=== PATIENT | male | born 1945 | race Caucasian/White ===

== ENCOUNTER 2017-12-27 10:55 | Inpatient (IN) | payer OTHER, MEDICARE ==
[2017-12-02 11:19] VITALS: BMI 29.0
--- NOTE | 2017-12-02 11:54 | PAT Medication Instructions ---
Service Date Dec 02, 2017. Current Home Medication List Aspirin (Aspirin Ec), 81 MG PO QAM Fish Oil (Ellijay-3), 1 CAP PO QAM Multiple Vitamins W/ Minerals (Centrum Silver Adult 50+), 1 TAB PO QAM Omeprazole (Prilosec), 20 MG PO QAM PRN for Indigestion Verapamil Sust Rel (Calan Sr Ext Rel), 240 MG PO QAM Medication Instructions For Your Scheduled Surgery - Hold the following medications 7 days prior to surgery per surgeon instructions: Fish Oil (Ellijay-3), 1 CAP PO QAM - Hold the following medications the morning of surgery: Multiple Vitamins W/ Minerals (Centrum Silver Adult 50+), 1 TAB PO QAM - Take the following medications the morning of surgery with a sip of water: Verapamil Sust Rel (Calan Sr Ext Rel), 240 MG PO QAM Omeprazole (Prilosec), 20 MG PO QAM PRN for Indigestion (if needed) Aspirin (Aspirin Ec), 81 MG PO QAM If you have any questions please call us at [phone] or [phone] or [phone]
[2017-12-02 12:37] LABS: BASO % 0.3 %; BASO ABS # 0.02 K/uL (0-0.2); EOS % 1.9 %; EOS ABS # 0.15 K/uL (0-0.5); HEMATOCRIT 44.5 % (42-52); HEMOGLOBIN 15.8 g/dL (14.0-18.0); IG# 0.02 K/uL (0.00-0.02); LYMPH % 21.4 %; LYMPH ABS # 1.65 K/uL (1.2-3.4); MEAN CELL VOLUME 88.5 fL (80-100); MEAN CORPUSCULAR HEMOGLOBIN 31.4 pg (25-34); MEAN CORPUSCULAR HGB CONC 35.5 g/dl (32-36); MEAN PLATELET VOLUME 10.5 fL (7.4-10.4); MONO % 10.1 %; MONO ABS # 0.78 K/uL (0.11-0.59); NEUT ABS # 5.08 K/uL (1.4-6.5); PLATELET COUNT 175 K/uL (130-400); RED CELL DISTRIBUTION WIDTH CV 12.3 % (11.5-14.5); RED CELL DISTRIBUTION WIDTH SD 39.4 fL (36.4-46.3)
--- NOTE | 2017-12-02 12:47 | DIAGNOSTIC IMAGING REPORT ---
CHEST 2 VIEWS ROUTINE CLINICAL HISTORY: Preoperative evaluation. COMPARISON STUDY: Chest radiograph June 12, 2016. FINDINGS: Lung volumes are normal. Right shoulder arthroplasty is incidentally noted. No pneumothorax or pleural effusion is noted. Linear left lower lung opacity is suggestive of atelectasis. There is no consolidation. Pulmonary vascularity is normal. Cardiomediastinal silhouette is normal. IMPRESSION: No acute cardiopulmonary findings. Electronically signed by: Sacha Deluna M.D. 12/02/2017 12:46 PM Dictated Date/Time: 12/02/2017 12:45 PM
[2017-12-02 12:50] LABS: PTT PATIENT 25.6 SECONDS (21.0-31.0)
[2017-12-02 14:07] LABS: CALCIUM 10.6 mg/dl (8.5-10.1); CREATININE 1.18 mg/dl (0.60-1.40); POTASSIUM 4.1 mmol/L (3.5-5.1)
--- NOTE | 2017-12-26 15:54 | HISTORY & PHYSICAL EXAMINATION ---
DATE OF ADMISSION: 12/27/2017 CHIEF COMPLAINT: Failed right shoulder resurfacing. HISTORY OF PRESENT ILLNESS: Maik is a pleasant 72-year-old male who has been dealing with chronic increasing right shoulder pain. He saw Dr. Das at [facility] and MRI showed an intact cuff with significant arthritis. He underwent a right shoulder resurfacing about 18 months ago. Unfortunately, since the surgery, he continued to have a lot of pain. He regained full motion, but his pain has become more severe. Followup treatment included an arthrogram, which showed an intact rotator cuff. It showed continued arthritis of the glenoid. After failing extensive conservative treatment, he elected to proceed with a removal of the resurfacing and conversion to a total shoulder arthroplasty. PAST MEDICAL HISTORY: Significant for GERD and hypertension. PAST SURGICAL HISTORY: Include partial prostatectomy, hernia repair and a right shoulder resurfacing by Dr. Das about 18 months ago. ALLERGIES: None. MEDICATIONS: Include omeprazole, verapamil and a daily 81-mg aspirin. FAMILY HISTORY: Significant for diabetes. SOCIAL HISTORY: He is . Never drinks. He remains active. REVIEW OF SYSTEMS: He complains of a continued right shoulder pain. All other pertinent review of systems is negative. PHYSICAL EXAMINATION: GENERAL: He is awake, alert and orient x3. He is in no apparent distress. He is very pleasant. HEENT: Pupils equal, round, and reactive to light. Extraocular movements are intact. Oral mucosa is pink and moist. HEART: Regular rate per radial pulse. LUNGS: Melina symmetrically bilaterally with no audible breath sounds. ABDOMEN: Soft, nontender, and nondistended. MUSCULOSKELETAL: On physical examination of the right shoulder, he has good motion with 150 degrees of forward elevation, 150 degrees of abduction, and 60 degrees of external rotation. His radial, median, ulnar and axillary nerves were all checked and intact. He has no signs of infection. He has close to 5/5 muscle strength throughout. Mildly positive belly press test. IMAGING: Arthrogram of the shoulder showed no evidence of a full thickness rotator cuff tear. X-rays of the shoulder do show a well-placed shoulder resurfacing with advanced arthritis of the glenoid. 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 PLAN: We will proceed with a removal of the resurfacing and conversion to a total shoulder arthroplasty. Postoperatively, he will be placed in an arm sling and kept overnight for postoperative medical management.
[2017-12-27] VITALS (7 sets, daily range): BP systolic 106–151; BP diastolic 61–80; PULSE 67–77; TEMP 36.3–36.8; O2SAT 91–95; Ht 170.2 cm; Wt 86.2 kg
[~2017-12-27] VITALS: Ht 170.2 cm; Wt 86.2 kg
--- NOTE | 2017-12-27 10:17 | History & Physical Bridge Note ---
H&P Re-Evaluation Bridge Note: I have examined the patient, reviewed the History & Physical and in the interval since the performance of the History & Physical I have noted the following changes of clinical significance: No changes noted
[~2017-12-27 10:55] MED LIST: ACETAMINOPHEN 500 MG TAB PO SCH; ASPI81TA28 PO; BACITRACIN 50000 UNIT VIAL ONE; BUPIVACAINE 0.25% 30 ML VIAL ONE; CEFAZOLIN 2000MG IV PUSH 15 ML IV SCH; DEXAMETHASONE SOD INJ 4 MG/ML VIAL ONE; EpINEphrine INJ 1MG/ML AMP 1 MG/ML AMP ONE; FAMOTIDINE 20 MG TAB PO SCH; FENTANYL CITRATE INJ 50 MCG/1 ML 2 ML VIAL ONE; GABAPENTIN 300 MG CAP PO SCH; GLYCOPYRROLATE INJ 0.2 MG/ML VIAL ONE; LACTATED RINGER'S 1000ML 1,000 ML IV SCH; LACTATED RINGER'S 1000ML IV SCH; LIDOCAINE HCL 2% 2 ML VIAL (20MG/ML) ONE; MIDAZOLAM HCL 1 MG/ML 2ML VIAL ONE; MULT-845 PO; NEOSTIGMINE METHYLSULFATE 5 MG/5 ML SYR ONE; OMEG10007 PO; ONDANSETRON INJ 2 MG/ML 2 ML VIAL ONE; ORTHO JOINT ANESTHETIC ONE; PRLSR20 PO; PROPOFOL IV EMULSION 10 MG/ML 20 ML VIAL IV ONE; ROCURONIUM BROMIDE 10 MG/ML 5 ML VIAL IV ONE; ROPIVACAINE 5MG/ML 30 ML 150 MG, BUPIVACAINE 0.5% MPF INJ 30 ML, EpINEphrine HCL INJ 0.... INFIL SCH; VERA240T20 PO
[2017-12-27] MEDS: TRANEXAMIC ACID INJ 1,000 MG x 2 Bags IV SCH ×4 (11:57→16:09)
[2017-12-27] MEDS ORDERED: EpHEDrine SULFATE 50MG/5ML SYR ONE (12:44)
[2017-12-27] MEDS ORDERED: ATROPINE SULFATE 0.1 MG/ML 5ML SYR IV PRN (12:45)
[2017-12-27] MEDS ORDERED: ONDANSETRON INJ 2 MG/ML 2 ML VIAL IV PRN ×2 (12:45→14:15)
[2017-12-27] MEDS ORDERED: PROMETHAZINE HCL INJ 6.25 MG in SODIUM CHLORIDE 0.9% 50ML 50 ML IV PRN (12:45)
[2017-12-27] MEDS ORDERED: FENTANYL CITRATE INJ 50 MCG/1 ML 2 ML VIAL IV PRN (12:45)
[2017-12-27] MEDS ORDERED: EpHEDrine SULFATE INJ 50 MG/ML AMP IV PRN (12:45)
[2017-12-27] MEDS ORDERED: GLYCOPYRROLATE INJ 0.2 MG/ML VIAL ONE (13:45)
[2017-12-27] MEDS ORDERED: ESMOLOL HCL 10 MG/ML 10 ML VIAL ONE (14:07)
--- NOTE | 2017-12-27 14:08 | [facility] Post Operative Brief Note ---
Immediate Operative Summary Operative Date Dec 27, 2017. Pre-Operative Diagnosis failure, right shoulder meño-arthroplasty Post-Operative Diagnosis failure, right shoulder meño-arthroplasty Procedure(s) Performed revision, right total shoulder arthroplasty Surgeon Dr. Pia Garibay Senior Asset Manager Surgeon(s) Huy Fang PA-C Estimated Blood Loss 250ml Findings Consistent with Post-Op Diagnosis Specimens A. right humeral head (permanent) B. explanted hardware, right shoulder Anesthesia Type General Regional Complication(s) none Disposition Disposition: Recovery Room / PACU
[2017-12-27] MEDS ORDERED: MAGNESIUM HYDROXIDE SUSP 30 ML UDC PO PRN (14:15)
[2017-12-27] MEDS ORDERED: BISACODYL 10 MG SUPP PR PRN (14:15)
[2017-12-27] MEDS ORDERED: OXYCODONE HCL IR 5 MG TAB (IMMEDIATE RELEASE) PO PRN (14:15)
[2017-12-27] MEDS ORDERED: SOD PHOSPHATE/SOD BIPHOSPHATE ENEMA 132 ML BTL PR PRN (14:15)
[2017-12-27] MEDS ORDERED: NALOXONE HCL 0.4 MG/1 ML VIAL/CARP IV PRN (14:15)
[2017-12-27] MEDS ORDERED: MoRPHine SULFATE 2 MG/ML CARP IV PRN (14:15)
[2017-12-27] MEDS ORDERED: METOCLOPRAMIDE HCL INJ 5 MG/ML 2 ML VIAL IV PRN (14:15)
[2017-12-27] MEDS ORDERED: IV FLUIDS COMPLETED PRN (14:45)
--- NOTE | 2017-12-27 16:08 | Anesthesiology Progress Note ---
Anesthesia Post Op Note Date & Time Dec 27, 2017 at 15:24 Vital Signs Pain Intensity: 0 Vital Signs Past 12 Hours Date Time Temp Pulse Resp B/P (MAP) Pulse Ox O2 Delivery O2 Flow Rate FiO2 12/27/17 15:20 67 15 112/60 94 Nasal Cannula 4 12/27/17 15:10 36.4 66 18 107/58 92 Nasal Cannula 4 12/27/17 15:00 72 15 107/62 93 Nasal Cannula 4 12/27/17 14:50 75 18 112/67 89 Oxymask 10 12/27/17 14:40 74 15 111/75 91 Oxymask 10 12/27/17 14:31 36.2 78 16 104/74 92 Oxymask 10 12/27/17 11:10 36.8 71 16 151/80 93 Room Air Notes Mental Status: alert / awake / arousable, participated in evaluation Pt Amnestic to Procedure: Yes Nausea / Vomiting: adequately controlled Pain: adequately controlled Airway Patency, RR, SpO2: stable & adequate BP & HR: stable & adequate Hydration State: stable & adequate Anesthetic Complications: no major complications apparent Anesthetic Complications: nerve block working well.
--- NOTE | 2017-12-27 16:25 | Discharge Instructions ---
Discharge Instructions Date of Service Dec 27, 2017. Admission Reason for Admission: Right Shoulder Glenoid Osteoarthritis, Retained [place] Discharge Discharge Diagnosis / Problem: Right Total Shoulder Discharge Goals Goal(s): Decrease discomfort, Improve function Activity Recommendations Activity Limitations: as noted below . Instructions / Follow-Up Instructions / Follow-Up Activity and Therapy Recommendations: * Wear your sling for 3 weeks, unless otherwise instructed. You may remove your sling to shower and to dress, but otherwise, you should be in your sling at all times, including while sleeping * The shoulder replacement is very stable and you can use your hand while in the sling * Physical Therapy should start about 3-5 days from your day of surgery. Therapy will last about 8-12 weeks * You were shown a series of exercises in the hospital. Do these exercises daily including the exercises you were shown in physical therapy. Medications: * Narcotic You will likely be sent home from the hospital with a prescription for the narcotic pain medication that worked best throughout your stay. * Other medications may be prescribed for specific circumstances. If you have any questions, please call the office at . * Resume previous home medications unless otherwise instructed Showering: You may shower 5 days from the day of surgery. Let the soapy shower water run over the lincoln. Do not scrub or soak the incision. Things To Watch For: * Drainage from the incision site that occurs more than one week after your surgery. * Increased redness at the incision site. * Fever above 102 degrees Fahrenheit. * Unusual chest pain or shortness of breath. * Call [facility] at with any of the above problems Follow-Up Visit: Follow-up with Dr. Garibay 2 weeks after your day of surgery. An appointment was probably scheduled when you signed-up for surgery in the office. If you have any questions call Office Instructions: More detailed instructions as well as Frequently Asked Questions were provided in a folder by our office when you signed-up for surgery. Please review these instructions when you get home. If you have any further questions or concerns, please feel free to call the office at [phone] Current Hospital Diet Patient's current hospital diet: Regular Diet Discharge Diet Recommended Diet: Regular Diet Procedures Procedures Performed: revision, right total shoulder arthroplasty, cemented Pending Studies Studies pending at discharge: no Medical Emergencies . Who to Call and When: Medical Emergencies: If at any time you feel your situation is an emergency, please call 911 immediately. . Non-Emergent Contact Non-Emergency issues call your: Surgeon Call Non-Emergent contact if: wound has increased drainage, wound has increased redness . "Provider Documentation" section prepared by Harley Garibay. .
--- NOTE | 2017-12-27 17:10 | OPERATIVE REPORT ---
DATE OF OPERATION: 12/27/2017 PREOPERATIVE DIAGNOSIS: Failed right shoulder hemiarthroplasty. POSTOPERATIVE DIAGNOSIS: Same. PROCEDURE: Removal of right shoulder hemiarthroplasty and conversion to total shoulder arthroplasty. SURGEON: Dr. Harley Garibay. BLISTER PACKING MACHINE TENDER: Priyank Fang PA-C, whose assistance was necessary for retraction and closure. ANESTHESIA: General with a right interscalene nerve block. COMPLICATIONS: None. CONDITION: Stable to PACU. INDICATIONS: Maik is a pleasant 72-year-old male who underwent a right shoulder hemiarthroplasty 18 months ago by another provider. Unfortunately, postoperatively, he continued to have a lot of shoulder pain. X-ray arthrogram showed no rotator cuff tears, but x-rays did show advancing arthritis of the glenoid. After failing conservative treatment, he elected to undergo conversion to a total shoulder arthroplasty. On 12/27/2017, he arrived at [facility] for the above procedure. He was seen in the preoperative holding area and the operative extremity was identified and signed. He was given a preoperative antibiotic and a right interscalene nerve block. He was taken back to the operating room, laid on the table in supine position and put under general anesthesia. He was then put into the beach chair position. The right shoulder was prepped and draped in sterile fashion. Time-out was done. The patient's operative extremity was properly identified. The previous deltopectoral approach was opened up. Dissection was taken down through the deltopectoral interval and the anterior shoulder was exposed. Time was spent releasing all adhesions. The long head of the biceps tendon was tenodesed to the upper border of the pec major and the remainder of the tendon was discarded. The subscapularis was peeled off the lesser tuberosity and the proximal humerus was exposed. The humerus was dislocated out of the joint. An oscillating saw and an osteotome were used to take off the resurfacing. Sequential reaming up to a size 16 reamer was done. Off the final reamer, a proximal humeral resection guide was placed and the proximal humerus was resected at 135 degrees of inclination and 30 degrees of retroversion. This basically just freshened up the cut from where the head was removed. The glenoid was then exposed. Time was spent doing an anterior and inferior capsular and labral release. The glenoid measured to be a size medium. A guide pin was placed in the center of the glenoid and a medium propellar reamer was used. The central boss was drilled followed by the 3 peripheral pegs. The medium glenoid with a Regenerex post was then cemented onto the glenoid. Once the cement had dried, the proximal humerus was once again exposed. Sequential broaching up to a size 16 broach was done. A size 46 x 18 mm eccentric humeral head was trialled. The shoulder was reduced, brought through a full range of motion and felt to be stable. The trials were removed. The final size 16 mini humeral stem was then impacted into place. A 46 x 18 mm eccentric humeral head was then impacted into place. The shoulder was once again reduced. The subscapularis was then tenodesed back to the lesser tuberosity with transosseous FiberWire sutures. Two sutures were placed in the lateral rotator interval. The quality of the subscapularis was rather poor. The surrounding soft tissues were injected with 100 mL of an orthopedic pain control cocktail. The wound was irrigated with 3 liters of normal saline solution with bacitracin. A drain was placed. Skin was closed with 2-0 Vicryl, 3-0 V-Loc sutures and lincoln. He was then placed in a soft dressing and a regular arm sling. He was then extubated, transferred to a litter and taken to the postanesthesia care unit in stable condition and tolerated the procedure well. IMPLANTS USED: I used a Biomet comprehensive total shoulder arthroplasty system with a size 16 mini humeral stem, a 46 x 18 mm humeral head and a medium glenoid with a Regenerex post. The glenoid was cemented in place. If a conversion to a reverse has to be done due to the poor quality of the subscapularis, there was a very good bone stock for placement of a glenoid baseplate. I attest to the content of the Intraoperative Record and any orders documented therein. Any exceptions are noted below. WILVER
[2017-12-27] MEDS: KETOROLAC TROMETHAMINE 15 MG/ML VIAL IV. SCH ×2 (17:48→23:38)
[2017-12-27] MEDS: POTASSIUM CHLORIDE INJ 10 MEQ in SODIUM CHLORIDE 0.9% 1000ML 1,000 ML IV SCH (20:03)
[2017-12-27] MEDS: CEFAZOLIN IV 2,000 MG in SYRINGE 0 ML IV SCH (20:04)
[2017-12-27] MEDS: DOCUSATE SODIUM 100 MG CAP PO SCH (20:49)
[2017-12-27] MEDS ORDERED: SENNA 8.6 MG TAB PO SCH (21:00)
[2017-12-27] MEDS: ACETAMINOPHEN IV 1,000 MG in EMPTY BAG 0 ML IV SCH (22:25)
[2017-12-28 03:40] VITALS: BP 175/74; PULSE 87; TEMP 36.7; O2SAT 91
[2017-12-28] MEDS: POTASSIUM CHLORIDE INJ 10 MEQ in SODIUM CHLORIDE 0.9% 1000ML 1,000 ML IV SCH (03:48)
[2017-12-28] MEDS: CEFAZOLIN IV 2,000 MG in SYRINGE 0 ML IV SCH (03:48)
[2017-12-28 03:52] VITALS: BP 157/92; PULSE 92
[2017-12-28] MEDS: ACETAMINOPHEN IV 1,000 MG in EMPTY BAG 0 ML IV SCH (05:46)
[2017-12-28] MEDS: KETOROLAC TROMETHAMINE 15 MG/ML VIAL IV. SCH (05:46)
[2017-12-28 06:20] LABS: HEMATOCRIT 40.1 % (42-52); HEMOGLOBIN 13.8 g/dL (14.0-18.0); MEAN CELL VOLUME 88.1 fL (80-100); MEAN CORPUSCULAR HEMOGLOBIN 30.3 pg (25-34); MEAN CORPUSCULAR HGB CONC 34.4 g/dl (32-36); MEAN PLATELET VOLUME 10.7 fL (7.4-10.4); PLATELET COUNT 164 K/uL (130-400); RED CELL DISTRIBUTION WIDTH CV 12.1 % (11.5-14.5); RED CELL DISTRIBUTION WIDTH SD 38.5 fL (36.4-46.3); WHITE BLOOD COUNT 13.83 K/uL (4.8-10.8)
[2017-12-28 06:42] LABS: CALCIUM 9.8 mg/dl (8.5-10.1); CREATININE 1.4 mg/dl (0.60-1.40); POTASSIUM 4.4 mmol/L (3.5-5.1)
[2017-12-28] MEDS ORDERED: RXC5 PO (07:22)
[2017-12-28 07:30] VITALS: BP 145/82; PULSE 95; TEMP 36.7; O2SAT 91
--- NOTE | 2017-12-28 07:50 | PROGRESS NOTE ---
DATE: 12/28/2017 CHIEF COMPLAINT: Status post right total shoulder arthroplasty postop day #1. PROGRESS: Maik was seen and examined at bedside today. Overall, he is doing very well. He has very little pain in the right shoulder. He is happy he had the procedure done. He has no complaints. PHYSICAL EXAMINATION: RIGHT SHOULDER: The dressing is clean and dry and the drain is to suction. He is wearing a sling as instructed. His radial, median and ulnar nerves are checked and intact at his wrist. His axillary nerve was not definitively checked yet. LABORATORY DATA: He has an H&H today of 13.8 and 40.1. His glucose is 169. His vital signs are all stable on room air. He is a little hypertensive. He is voiding on his own. IMPRESSION: Status post right total shoulder arthroplasty postop day #1. PLAN: At this point, he is doing as well as expected. He will be seen by physical therapy today to do some hand, wrist and elbow exercises. I do not want any external rotation past 30 degrees. He will be in a sling for 6 weeks. I will discharge him to home later this morning with oral pain medications.
[2017-12-28] MEDS: DOCUSATE SODIUM 100 MG CAP PO SCH (08:47)
[2017-12-28] MEDS ORDERED: ASPIRIN 81 MG ECTAB PO SCH (09:00)
[2017-12-28] MEDS ORDERED: MULTIVITAMIN TAB PO SCH (09:00)
[2017-12-28] MEDS ORDERED: VERAPAMIL HCL 240 MG TABCR PO SCH (09:00)
[2017-12-28 10:59] VITALS: BP 145/82; PULSE 95; TEMP 36.7; O2SAT 91
[2017-12-28 14:57] VITALS: BP 145/82; PULSE 77; O2SAT 96
--- NOTE | 2017-12-31 12:31 | DISCHARGE SUMMARY ---
DISCHARGE DIAGNOSIS: Failed right shoulder hemiarthroplasty. PROCEDURE: Revision to a right total shoulder arthroplasty on 12/27/[address] Harley Garibay. DISCHARGE INSTRUCTIONS: 1. Oxycodone 5-10 mg every 4 hours as needed for pain. 2. Aspirin 81 mg daily. 3. Prilosec as needed. 4. Verapamil 240 mg daily. 5. Right arm sling for 6 weeks. 6. Follow up with Dr. Garibay in 2 weeks. 7. Call the office of Dr. Garibay with any questions or concerns. HOSPITAL COURSE: Maik is a pleasant 72-year-old male who underwent a right shoulder resurfacing 18 months ago by another provider. Unfortunately he continued to have a lot of shoulder pain. Arthrogram and x-rays showed an intact rotator cuff. X-rays also showed advancing arthritis of the glenoid. After failing conservative treatment, he elected to undergo conversion to a total shoulder arthroplasty. On 12/27/2017 he arrived at [facility] and underwent a conversion to a right total shoulder arthroplasty without complication. He had a general anesthetic and a right interscalene nerve block. Postoperatively, he was placed in an arm sling and discharged to general orthopedic floor. His hospital course was uneventful. On postop day #1 he was having very little pain in the shoulder. The nerve block had completely worn off. He was able to participate with therapy, doing hand, wrist and elbow exercises. We are going to limit external rotation for 6 weeks. The nursing staff had changed the dressing, pulled the drain, and he was subsequently discharged to home with the above instructions.
== END 2017-12-28 12:55 | disposition home or self-care (01) | DRG 483 ==
LOC: C.ACU 10:55 → C.3E 14:15 → OBSVTOIN 14:15 → ENRESERV 14:58
PROVIDERS: ADMIT Orthopaedic Surgery; ATTEND Orthopaedic Surgery
PROC: 0RRJ0JZ Replacement of Right Shoulder Joint with Synthetic Substitute, Open Approach (ICD-10-PCS; principal; 2017-12-27 13:35)
PROC: 0RPJ0JZ Removal of Synthetic Substitute from Right Shoulder Joint, Open Approach (ICD-10-PCS; principal; 2017-12-27 13:35)
DX: T84.89XA Other specified complication of internal orthopedic prosthetic devices, implants and grafts, initial encounter (principal); I10 Essential (primary) hypertension; K21.9 Gastro-esophageal reflux disease without esophagitis; Z79.82 Long term (current) use of aspirin; Z79.899 Other long term (current) drug therapy; Z90.79 Acquired absence of other genital organ(s); Y79.2 Prosthetic and other implants, materials and accessory orthopedic devices associated with adverse incidents; Y83.1 Surgical operation with implant of artificial internal device as the cause of abnormal reaction of the patient, or of later complication, without mention of misadventure at the time of the procedure; Z98.890 Other specified postprocedural states

== ENCOUNTER 2023-04-12 05:35 | Observation (INO) ==
[2023-04-12 06:13] LABS: Appearance Urine Cloudy (Clear); Bacteria Urine Automated Negative (Negative); Bilirubin Urine Negative (Negative); Blood Urine 3+ (Negative); Color Urine Yellow; Epithelial Cell Urine Auto >30 /lpf (0-5); Glucose Urine UA Negative (Negative); Ketones Urine Trace (Negative); Leukocyte Esterase Urine 1+ (Negative); Nitrite Urine Negative (Negative); Protein Urine Trace (Negative); Specific Gravity Urine 1.026 (1.000-1.030); Urobilinogen Urine Negative (Negative)
[2023-04-12 06:26] LABS: Calcium Oxalate Crystals Urine Present (None Prsent)
[2023-04-12 06:28] LABS: Basophils # (auto) 0.06 K/uL (0-0.2); Basophils % (auto) 0.6 %; Eosinophils # (auto) 0.19 K/uL (0-0.50); Eosinophils % (auto) 1.8 %; Hematocrit (blood only) 42.2 % (42.0-52.0); Immature Granulocytes # (auto) 0.06 K/uL (0.01-0.20); Immature Granulocytes % (auto) 0.6 %; Lymphocytes # (auto) 1.01 K/uL (1.2-3.4); Lymphocytes % (auto) 9.6 %; Mean Corpuscular Hemoglobin 30.5 pg (25.0-34.0); Mean Corpuscular Hgb Conc 35.5 g/dL (32.0-36.0); Mean Corpuscular Volume 85.8 fL (80.0-100.0); Mean Platelet Volume 10.8 fL (9.4-12.4); Monocytes # (auto) 0.67 K/uL (0.11-0.59); Monocytes % (auto) 6.4 %; Neutrophils # (auto) 8.51 K/uL (1.40-6.50); Platelet Count 162 K/uL (130-400); RDW Coefficient of Variation 11.9 % (11.5-14.5); RDW Standard Deviation 37.2 fL (36.4-46.3); Red Blood Count 4.92 M/uL (4.70-6.10)
--- NOTE | 2023-04-12 06:36 | Emergency Department Note ---
Impression & Plan Hydronephrosis, Abdominal pain, Atypical chest pain, Acute electrocardiogram changes, Renal colic on right side, Hyperglycemia ED Provider Note NAME: PATRICIA MARTINEZ AGE: 78 SEX: M : 1945 ARRIVES VIA: Walk-In INFORMANT: Patient, ED PROVIDER(S): Deshawn Mendez MD CHIEF COMPLAINT: Abdominal pain MEDICAL DECISION MAKING: Patient presents due to concern for abdominal pain. The patient seems to have right lower quadrant pain. IV was established blood work was obtained patient did receive IV morphine IV Zofran and IV fluids. CT abdomen pelvis ordered. Patient's blood work shows a normal white count H&H and platelet count. Kidney function is unremarkable. BSG at 222 but not DKA with normal anion gap and bicarb. Urinalysis does show calcium oxalate crystals and associated breads. Patient CT abdomen pelvis does show a 6 mm obstructing kidney stone. Cholelithiasis without evidence of obvious cholecystitis. Chest x-ray is clear. The patient did have an episode of chest pressure. Unsure as whether or not the patient had some motion artifact but the patient may have slight depressions in the lateral leads V4 through V6. The patient's chest pain was dissipating. Given the patient's obstructing kidney stone chest pressure and possible EKG changes I did speak with the on-call hospitalist service and the patient was admitted to the medicine service by Dr. Salguero. Patient currently has no active chest pain at the time of his admission. Prior /Outside records reviewed: I did review a discharge summary from December 2017. Patient did have a total shoulder arthroplasty completed at that time w/ Dr. Garibay. Differential diagnosis: Appendicitis, testicular torsion, infections, diverticulitis, UTI, obstruction, mesenteric ischemia, aortic pathology, inflammatory bowel disease, renal colic, PUD, pancreatitis, biliary pathology, hernia, volvulus, constipation, as well as other pathologies. Diagnostics, as interpreted by me: ECG: Normal sinus rhythm, rate of 72, normal intervals normal axis no ST elevations. Repeat EKG interpreted by myself Normal sinus rhythm, rate of 82, normal intervals, normal axis, questionable slight depressions in the lateral leads V4 through V6. Repeat EKG interpreted by me Normal sinus rhythm, rate of 79, normal intervals, normal axis, motion artifact noted in the inferior leads. ST depressions noted in the lateral leads. Cardiac monitoring: An order was placed for continuous cardiac monitoring. The monitor shows a rate of 77 with sinus rhythm. Patient was placed on pulse oximetry Medical decision rules: none Imaging studies: See below I informally reviewed the patient's CT which does show right-sided obstructing kidney stone. HPI: Patient presents due to concern for lower right lower abdominal pain. Patient denies any chest pains or shortness of breath. He has had nonproductive cough ongoing and he states that he did have an EGD completed last fall and they had stated that they thought this was related to his Parkinson's. The patient did recently switch medications and does follow with a Dr. Keys in [facility]. Patient had been on Sinemet before and now is on a new medicine. Patient denies any falls or trauma. The patient states that he felt generally unwell with some associated nausea but no vomiting. He did take 2 ibuprofen which improved some of his symptoms. Patient does have a prior history of kidney stones but this does not feel similar. Patient denies any testicular or scrotal pain or swelling. No dysuria or hematuria. No blood in the stool. Patient denies any alcohol or tobacco use. PAST MEDICAL HISTORY: See Below PAST SURGICAL HISTORY: See Below SOCIAL HISTORY: See Below HOME MEDICATIONS: See Below ALLERGIES: See Below VITALS: See Below PHYSICAL EXAMINATION: GENERAL: NAD, non-toxic. EYE EXAM: Normal conjunctiva. PERRL, no anisocoria and EOM's grossly intact w/o pain. NECK: Supple, no nuchal rigidity, no adenopathy, non-tender. No signs of meningismus. FROM of the neck with good chin to chest and neck extension. No stridor. LUNGS: Clear to auscultation. Normal chest wall mechanics. HEART: NSR, no MRG. ABDOMEN: Abdomen soft, right lower quadrant pain, negative obturators, no masses, no rebound or guarding. BACK: No CVA TTP. SKIN: No rashes and no bruising. UPPER EXTREMITIES: Upper extremities are grossly normal. Resting tremor noted of the right upper extremity LOWER EXTREMITIES: Grossly normal, no edema. NEURO EXAM: A&O x3, cranial nerves II-XII grossly intact, normal speech, moves all 4 extremities. Past Med/Surg History Medical History GERD (gastroesophageal reflux disease) H/O: HTN (hypertension) HLD (hyperlipidemia) Parkinson disease Surgical History History of arthroplasty of left shoulder Social History Smoking Status: Never smoker Hx Alcohol Use: No Hx Substance Use: No Feels Safe at Home: Yes Allergies Allergies Allergy/AdvReac Type Severity Reaction Status Date / Time No Known Allergies Allergy Unverified 12/27/17 11:26 Home Meds Home Medications Medication Instructions Recorded Confirmed ASPIRIN (ASPIRIN EC) 81 mg PO QAM ##0 06/12/16 Fish Oil (Browning-3) 1 cap PO QAM #0 caps 06/12/16 MULTIPLE VITAMINS W/ MINERALS 1 tab PO QAM ##0 06/12/16 (CENTRUM SILVER ADULT 50+) OMEPRAZOLE (PRILOSEC) 20 mg PO QAM PRN Indigestion #0 06/12/16 caps Verapamil Sust Rel (Calan Sr Ext 240 mg PO QAM #0 tabs 06/12/16 Rel) Previous Rx's Medication Instructions Recorded Oxycodone HCl 5 - 10 mg PO Q4H PRN Pain #60 tabs 12/28/17 Results & Data (ED) Vital Signs Vital Signs - 24 hr 04/12/23 05:37 04/12/23 06:13 04/12/23 06:15 Temperature 36.9 C Temperature Source Oral Pulse Rate 66 73 Pulse Rate [Right Finger] 69 Pulse Rate from SpO2 Sensor Pulse Rhythm Regular Regular Pulse Rhythm [Right Finger] Regular Pulse Strength Normal Pulse Strength [Right Finger] Normal Respiratory Rate 18 26 H 18 Respiratory Effort / Characteristics Non-Labored Spontaneous Non-Labored Spontaneous Respiratory Depth Normal Normal Respiratory Pattern Regular Regular Blood Pressure 154/90 H Blood Pressure [Left Arm] 165/118 H Blood Pressure Mean 111 Blood Pressure Mean [Left Arm] 133 Blood Pressure Position [Left Arm] Lying Pulse Oximetry 98 94 95 Oxygen Delivery Method Room Air Room Air Room Air Sepsis Recent Fever Within 48 Hours No Sepsis New/Unexplained Change in Mental Status N/A Sepsis Action Taken by Nursing No Action Required 04/12/23 06:18 04/12/23 06:17 04/12/23 06:32 Temperature Temperature Source Pulse Rate 71 74 74 Pulse Rate [Right Finger] Pulse Rate from SpO2 Sensor 73 Pulse Rhythm Pulse Rhythm [Right Finger] Pulse Strength Pulse Strength [Right Finger] Respiratory Rate 17 24 Respiratory Effort / Characteristics Respiratory Depth Respiratory Pattern Blood Pressure 142/80 H Blood Pressure [Left Arm] Blood Pressure Mean 100 Blood Pressure Mean [Left Arm] Blood Pressure Position [Left Arm] Pulse Oximetry 95 96 Oxygen Delivery Method Sepsis Recent Fever Within 48 Hours Sepsis New/Unexplained Change in Mental Status Sepsis Action Taken by Nursing 04/12/23 07:00 04/12/23 07:02 04/12/23 07:02 Temperature Temperature Source Pulse Rate 71 78 Pulse Rate [Right Finger] Pulse Rate from SpO2 Sensor 71 77 Pulse Rhythm Pulse Rhythm [Right Finger] Pulse Strength Pulse Strength [Right Finger] Respiratory Rate 25 H 22 Respiratory Effort / Characteristics Respiratory Depth Respiratory Pattern Blood Pressure 154/105 H Blood Pressure [Left Arm] Blood Pressure Mean 121 Blood Pressure Mean [Left Arm] Blood Pressure Position [Left Arm] Pulse Oximetry 93 95 Oxygen Delivery Method Sepsis Recent Fever Within 48 Hours Sepsis New/Unexplained Change in Mental Status Sepsis Action Taken by Nursing 04/12/23 07:30 04/12/23 07:30 Temperature Temperature Source Pulse Rate 80 Pulse Rate [Right Finger] Pulse Rate from SpO2 Sensor 79 Pulse Rhythm Pulse Rhythm [Right Finger] Pulse Strength Pulse Strength [Right Finger] Respiratory Rate 16 Respiratory Effort / Characteristics Respiratory Depth Respiratory Pattern Blood Pressure 164/104 H Blood Pressure [Left Arm] Blood Pressure Mean 124 Blood Pressure Mean [Left Arm] Blood Pressure Position [Left Arm] Pulse Oximetry 93 Oxygen Delivery Method Sepsis Recent Fever Within 48 Hours Sepsis New/Unexplained Change in Mental Status Sepsis Action Taken by Skilled Nursing Medications Current Medication List: was personally reviewed by me Laboratory Data Attestation: I reviewed the patient's lab results. 04/12/23 06:06 04/12/23 06:06 Lab Results 04/12/23 04/12/23 04/12/23 Range/Units 05:55 06:06 06:06 WBC 10.50 (4.8-10.8) K/ul RBC 4.92 (4.70-6.10) M/uL Hgb 15.0 (14.0-18.0) g/dl Hct 42.2 (42.0-52.0) % MCV 85.8 (80.0-100.0) fL MCH 30.5 (25.0-34.0) pg MCHC 35.5 (32.0-36.0) g/dL RDW Std Deviation 37.2 (36.4-46.3) fL RDW Coeff of Brett 11.9 (11.5-14.5) % Plt Count 162 (130-400) K/uL MPV 10.8 (9.4-12.4) fL Immature Gran % (Auto) 0.6 % Neut % (Auto) 81.0 % Lymph % (Auto) 9.6 % Hughes % (Auto) 6.4 % Eos % (Auto) 1.8 % Baso % (Auto) 0.6 % Neut # (Auto) 8.51 H (1.40-6.50) K/uL Lymph # (Auto) 1.01 L (1.2-3.4) K/uL Hughes # (Auto) 0.67 H (0.11-0.59) K/uL Eos # (Auto) 0.19 (0-0.50) K/uL Baso # (Auto) 0.06 (0-0.2) K/uL Immature Gran # (Auto) 0.06 (0.01-0.20) K/uL Sodium 137 (136-145) mmol/L Potassium 4.1 (3.5-5.1) mmol/L Chloride 105 (98-107) mmol/L Carbon Dioxide 24 (21-32) mmol/L Anion Gap 8 (3-11) BUN 17 (6-23) mg/dl Creatinine 1.30 (0.6-1.4) mg/dl Est Cr Clr Drug Dosing 47.8 ml/min Est GFR ( Amer) 60.6 ml/min Est GFR (Non-Af Amer) 52.3 ml/min BUN/Creatinine Ratio 13.1 (10-20) Glucose 222 H (70-99(Fasting)) mg/dl Calcium 10.1 (8.6-10.3) mg/dl Total Bilirubin 0.6 (0.2-1.0) mg/dl AST 25 (13-39) U/L ALT 33 (7-52) U/L Alkaline Phosphatase 88 (34-104) U/L Troponin I High Sens 7.2 (0-20) pg/ml Total Protein 7.1 (6.0-8.3) gm/dl Albumin 4.4 (3.4-5.0) gm/dl Globulin 2.7 (2.5-4.0) gm/dl Albumin/Globulin Ratio 1.6 (0.9-2) Lipase 28 (11-82) U/L Urine Color Yellow Urine Appearance Cloudy A (Clear) Urine pH 5.0 (4.5-7.5) Ur Specific Jay 1.026 (1.000-1.030) Urine Protein Trace H (Negative) Urine Glucose (UA) Negative (Negative) Urine Ketones Trace H (Negative) Urine Blood 3+ H (Negative) Urine Nitrite Negative (Negative) Urine Bilirubin Negative (Negative) Urine Urobilinogen Negative (Negative) Ur Leukocyte Esterase 1+ H (Negative) Urine WBC (Auto) 5-10 H (0-5) /hpf Urine RBC (Auto) 10-30 H (0-4) /hpf U Hyaline Cast (Auto) 1-5 (0-5) /lpf U Epithel Cells (Auto) >30 H (0-5) /lpf Urine Bacteria (Auto) Negative (Negative) Urine Crystals Not Reportable Calcium Oxalate Crystal Present A (None Prsent) SARS-CoV-2, RNA, NAAT (NEGATIVE) 04/12/23 Range/Units 07:51 WBC (4.8-10.8) K/ul RBC (4.70-6.10) M/uL Hgb (14.0-18.0) g/dl Hct (42.0-52.0) % MCV (80.0-100.0) fL MCH (25.0-34.0) pg MCHC (32.0-36.0) g/dL RDW Std Deviation (36.4-46.3) fL RDW Coeff of Brett (11.5-14.5) % Plt Count (130-400) K/uL MPV (9.4-12.4) fL Immature Gran % (Auto) % Neut % (Auto) % Lymph % (Auto) % Hughes % (Auto) % Eos % (Auto) % Baso % (Auto) % Neut # (Auto) (1.40-6.50) K/uL Lymph # (Auto) (1.2-3.4) K/uL Hughes # (Auto) (0.11-0.59) K/uL Eos # (Auto) (0-0.50) K/uL Baso # (Auto) (0-0.2) K/uL Immature Gran # (Auto) (0.01-0.20) K/uL Sodium (136-145) mmol/L Potassium (3.5-5.1) mmol/L Chloride (98-107) mmol/L Carbon Dioxide (21-32) mmol/L Anion Gap (3-11) BUN (6-23) mg/dl Creatinine (0.6-1.4) mg/dl Est Cr Clr Drug Dosing ml/min Est GFR ( Amer) ml/min Est GFR (Non-Af Amer) ml/min BUN/Creatinine Ratio (10-20) Glucose (70-99(Fasting)) mg/dl Calcium (8.6-10.3) mg/dl Total Bilirubin (0.2-1.0) mg/dl AST (13-39) U/L ALT (7-52) U/L Alkaline Phosphatase (34-104) U/L Troponin I High Sens (0-20) pg/ml Total Protein (6.0-8.3) gm/dl Albumin (3.4-5.0) gm/dl Globulin (2.5-4.0) gm/dl Albumin/Globulin Ratio (0.9-2) Lipase (11-82) U/L Urine Color Urine Appearance (Clear) Urine pH (4.5-7.5) Ur Specific Jay (1.000-1.030) Urine Protein (Negative) Urine Glucose (UA) (Negative) Urine Ketones (Negative) Urine Blood (Negative) Urine Nitrite (Negative) Urine Bilirubin (Negative) Urine Urobilinogen (Negative) Ur Leukocyte Esterase (Negative) Urine WBC (Auto) (0-5) /hpf Urine RBC (Auto) (0-4) /hpf U Hyaline Cast (Auto) (0-5) /lpf U Epithel Cells (Auto) (0-5) /lpf Urine Bacteria (Auto) (Negative) Urine Crystals Calcium Oxalate Crystal (None Prsent) SARS-CoV-2, RNA, NAAT NEGATIVE (NEGATIVE) Administered Medications Discontinued Medications Aspirin (Aspirin Chew 324 Mg) 324 mg PO NOW STA Stop: 04/12/23 07:38 Last Admin: 04/12/23 07:42 Dose: 324 mg Documented By: MES Sodium Chloride (Nss 1000ml) 500 mls @ 999 mls/hr IV .Q31M ONE Stop: 04/12/23 07:23 Last Infusion: 04/12/23 07:29 Dose: 0 mls/hr Documented By: Admin: 04/12/23 06:57 Dose: 999 mls/hr Documented By: LAURA Ioversol (Optiray 320 100ml) 95 ml IV ONCE ONE Stop: 04/12/23 07:14 Last Admin: 04/12/23 07:13 Dose: 95 ml Documented By: JOSÉ ANTONIO Morphine Sulfate (Morphine Sulfate 4 Mg/Ml 1 Ml Carp\Vial) 4 mg IV NOW STA Stop: 04/12/23 06:54 Last Admin: 04/12/23 06:57 Dose: 4 mg Documented By: LAURA Morphine Sulfate (Morphine Sulfate 4 Mg/Ml 1 Ml Carp\Vial) 4 mg IV NOW STA Stop: 04/12/23 08:07 Last Admin: 04/12/23 08:27 Dose: 4 mg Documented By: LAURA Ondansetron HCl (Ondansetron Inj 2 Mg/Ml 2 Ml Vial) 4 mg IV NOW STA Stop: 04/12/23 06:54 Last Admin: 04/12/23 06:57 Dose: 4 mg Documented By: LAURA Imaging Data Radiologist's Impression: Abdomen/Pelvis CT 04/12/23 05:46 CT OF THE ABDOMEN AND PELVIS WITH CONTRAST CLINICAL HISTORY: Right-sided abdominal pain. Nausea COMPARISON STUDY: None. TECHNIQUE: Following IV administration of 95 mL of Optiray, axial images of the abdomen and pelvis were obtained from the lung bases to the proximal femurs. Images were reviewed in the axial, sagittal, and coronal planes. IV contrast was administered without complication. Automated exposure control was utilized for the study. A dose lowering technique was utilized adhering to the principles of ALARA. CT DOSE: 1071.90 mGy.cm FINDINGS: A 6 mm proximal right ureteral calculus results in moderate right hydronephrosis with slightly delayed right nephrogram. There is right perinephric stranding. A few right renal calculi measure up to 6 mm. There are no left-sided urinary calculi. There are small gallstones within the gallbladder. No evidence for acute cholecystitis. Liver, spleen, adrenal glands and pancreas are unremarkable. There is no evidence for a bowel obstruction. Colonic diverticulosis. No evidence for acute diverticulitis. The appendix is normal. There is no lymphadenopathy. No fluid collections are present. Calcifications within the space of Retzius are noted. These are of doubtful significance. IMPRESSION: 1. 6 mm proximal right ureteral calculus which results in moderate right hydronephrosis. 2. Right nephrolithiasis. 3. Cholelithiasis. No evidence for acute cholecystitis. 4. Colonic diverticulosis. No evidence for acute diverticulitis. ACT 112: Negative or not required by law. Electronically signed by: Sacha Deluna M.D. 04/12/2023 7:26 AM Chest X-Ray 04/12/23 06:56 XR chest 1V portable CLINICAL HISTORY: Cough. COMPARISON STUDY: Chest radiograph December 02, 2017. FINDINGS: Right shoulder arthroplasty is partially imaged. Lung volumes are normal. Lungs are clear. There is no pneumothorax or pleural effusion. Cardiac size is normal. Mediastinal contours are normal. There is no evidence for pulmonary edema. IMPRESSION: No acute cardiopulmonary findings. ACT 112: Negative or not required by law. Electronically signed by: Sacha Deluna M.D. 04/12/2023 7:11 AM Discharge Plan Visit Data Chief Complaint: Abdominal Pain Stated Complaint: ABD PAIN ED Provider: Deshawn Mendez Discharge Problem: Hydronephrosis, Abdominal pain, Atypical chest pain, Acute electrocardiogram changes, Renal colic on right side, Hyperglycemia Forms Stand Alone Forms: Enjoi Prescriptions Prescriptions: No Action ASPIRIN (ASPIRIN EC) 81 MG tablet 81 mg PO QAM Qty: 0 Fish Oil (Browning-3) 1 EA capsule 1 cap PO QAM Qty: 0 Patient Comments: PT REPORTS OMEGA 3 AND FISH OIL IS TOGETHER IN ONE BIG HORSE PILL MULTIPLE VITAMINS W/ MINERALS (CENTRUM SILVER ADULT 50+) 1 TAB tablet 1 tab PO QAM Qty: 0 OMEPRAZOLE (PRILOSEC) 20 MG CONTR REL CAP 20 mg PO QAM PRN (Reason: Indigestion) Qty: 0 Patient Comments: pt usues every am and PRN Verapamil Sust Rel (Calan Sr Ext Rel) 240 MG [id number] 240 mg PO QAM Qty: 0 Oxycodone HCl 5 MG tablet 5 - 10 mg PO Q4H PRN (Reason: Pain) Qty: 60 0RF Referrals Referrals: Santosh Rojas [Primary Care Provider] -
[2023-04-12 06:45] LABS: Albumin Globulin Ratio 1.6 (0.9-2); Albumin Level 4.4 gm/dl (3.4-5.0); BUN Creatinine Ratio 13.1 (10-20); Bilirubin,Total 0.6 mg/dl (0.2-1.0); Calcium 10.1 mg/dl (8.6-10.3); Creatinine Clr Calc Pharmacy 47.8 ml/min; Est GFR (African American) 60.6 ml/min; Est GFR (Non-African American) 52.3 ml/min; Globulin 2.7 gm/dl (2.5-4.0); Potassium 4.1 mmol/L (3.5-5.1); Total Protein 7.1 gm/dl (6.0-8.3)
[2023-04-12 06:50] LABS: Troponin I High Sensitivity 7.2 pg/ml (0-20)
[2023-04-12] MEDS ORDERED: ONDANSETRON INJ 2 MG/ML 2 ML VIAL IV STA (06:53)
[2023-04-12] MEDS ORDERED: MoRPHine SULFATE 4 MG/ML 1 ML CARP\\VIAL IV STA ×2 (06:53→08:06)
[2023-04-12] MEDS ORDERED: SODIUM CHLORIDE 0.9% 1000ML 500 ML IV ONE (06:53)
--- NOTE | 2023-04-12 07:12 | XRay Report ---
XR chest 1V portable CLINICAL HISTORY: Cough. COMPARISON STUDY: Chest radiograph December 02, 2017. FINDINGS: Right shoulder arthroplasty is partially imaged. Lung volumes are normal. Lungs are clear. There is no pneumothorax or pleural effusion. Cardiac size is normal. Mediastinal contours are normal . There is no evidence for pulmonary edema. IMPRESSION: No acute cardiopulmonary findings. ACT 112: Negative or not required by law. Electronically signed by: Sacha Deluna M.D. 04/12/2023 7:11 AM
[2023-04-12] MEDS ORDERED: OPTIRAY 320 100ml IV ONE (07:13)
--- NOTE | 2023-04-12 07:28 | CT Scan Report ---
CT OF THE ABDOMEN AND PELVIS WITH CONTRAST CLINICAL HISTORY: Right-sided abdominal pain. Nausea COMPARISON STUDY: None. TECHNIQUE: Following IV administration of 95 mL of Optiray, axial images of the abdomen and pelvis we re obtained from the lung bases to the proximal femurs. Images were reviewed in the axial, sagittal, and coronal planes. IV contrast was administered without complication. Automated exposure control wa s utilized for the study. A dose lowering technique was utilized adhering to the principles of ALARA . CT DOSE: 1071.90 mGy.cm FINDINGS: A 6 mm proximal right ureteral calculus results in moderate right hydronephrosis with sligh tly delayed right nephrogram. There is right perinephric stranding. A few right renal calculi measure up to 6 mm. There are no left-sided urinary calculi. There are small gallstones within the gallbladd er. No evidence for acute cholecystitis. Liver, spleen, adrenal glands and pancreas are unremarkable. There is no evidence for a bowel obstruction. Colonic diverticulosis. No evidence for acute divertic ulitis. The appendix is normal. There is no lymphadenopathy. No fluid collections are present. Calcif ications within the space of Retzius are noted. These are of doubtful significance. IMPRESSION: 1. 6 mm proximal right ureteral calculus which results in moderate right hydronephrosis. 2. Right nephrolithiasis. 3. Cholelithiasis. No evidence for acute cholecystitis. 4. Colonic diverticulosis. No evidence for acute diverticulitis. ACT 112: Negative or not required by law. Electronically signed by: Sacha Deluna M.D. 04/12/2023 7:26 AM
[2023-04-12] MEDS ORDERED: ASPIRIN CHEW 324 MG PO STA (07:37)
[2023-04-12] MEDS ORDERED: SODIUM CHLORIDE 0.9% 1000ML 1,000 ML IV ONE (08:00)
[2023-04-12] MEDS ORDERED: cefTRIAXone SODIUM 2,000 MG in DEXTROSE 5% AD-VAN 50 ML IV ONE (09:24)
[2023-04-12] MEDS ORDERED: VERAPAMIL HCL 240 MG TABCR PO STA (09:34)
[2023-04-12] MEDS ORDERED: cefTRIAXone SODIUM 2,000 MG in DEXTROSE 5% 50 ML IV STA (09:35)
[2023-04-12] MEDS ORDERED: POLYETHYLENE (MIRALAX) 17 GM PACK PO PRN (09:40)
[2023-04-12] MEDS ORDERED: ONDANSETRON INJ 2 MG/ML 2 ML VIAL IV PRN ×2 (09:40→11:22)
[2023-04-12] MEDS ORDERED: ACETAMINOPHEN 325 MG TAB PO PRN (09:40)
--- NOTE | 2023-04-12 09:58 | History & Physical Report ---
Date of Service April 12, 2023 Assessment & Plan (1) Hydronephrosis: (2) Right ureteral stone: (3) Atypical chest pain: (4) HTN (hypertension): (5) HLD (hyperlipidemia): (6) Parkinson disease: Plan This is a 78-year-old male with past medical history of Parkinson's disease, hyp ertension, mood disorder, hyperlipidemia, GERD, history of kidney stones and other medical problems listed below who presents with flank pain that woke him up around 0100 this morning and was found R ureteral stone with hydronephrosis. R ureteral stone with moderate hydronephrosis Right flank pain UA abnormalities R flank pain with associated nausea since 0100 Afebrile, no leukocytosis, abnormal UA concerning for complicated UTI CT abd/pelvis with a 6 mm proximal right ureteral calculus which results in moderate right hydronephrosis Continue IV fluids, gave empiric Rocephin, discussed case with urology service who will evaluate Pain control, strain urine Transient chest pain Developed chest pain following CT scan that has since resolved Multifactorial with anxiety, elevated BP and contrast dye likely contributing Pain resolved after 10 minutes and has not recurred. Repeat EKG and HS trop negative x 2 Will monitor on tele, complete 1 additional trop, gave missed AM verapamil HTN Continue verapamil, lisinopril Parkinson's disease Given missed AM dose of Rytary (not on formulation here but family brought, will send to pharmacy) Mood disorder Stable, continue fluoxetine Hyperglycemia BSG 222 this AM. No known h/o DM II. Added a1c to AM labs DVT Ppx: SCDs for now in case of intervention Code status: FULL PCP: Bob Dispo: Observation PCU Patient seen in collaboration with Dr. Auguste. Please see addendum. I spent a total of 75 minutes coordinating, documenting, and providing care for this patient excluding time spent in the performance of separately billed services. Admission and Anticipated Discharge Date Admission Date: April 12, 2023 History of Present Illness Chief Complaint: Flank pain Primary Care Provider: Santosh Rojas This is a 78-year-old male with past medical history of Parkinson's disease, hypertension, mood disorder, hyperlipidemia, GERD, history of kidney stones and other medical problems listed below who presents with flank pain that woke him up around 0100 this morning. States he felt fatigued and achy yesterday but did not have any pain until it woke him up around 1 this morning. States he developed right-sided sharp flank pain that radiated towards his back and also towards his bladder. Denies any dysuria, hematuria or increased frequency or urgency. Does have history of kidney stones in the past but they have been less painful than this and passed on their own. Endorses some associated nausea but no vomiting. Denies any fever, chills, lightheadedness, shortness of breath, abdominal pain, diarrhea or constipation. Did develop some chest tightness after CAT scan and noted to have elevated blood pressure of 164/118. Did not yet take his morning medications. Patient was given aspirin and rested in bed with resolution of pain within 10 minutes. EKG showed possible ST changes in V4 to V6 but high-sensitivity troponin at that time was negative and repeat EKG 15 minutes later was normal. Repeat troponin 2 hours later also negative and patient has remained chest pain free. Still experiencing 4/10 R flank discomfort. Allergies Allergy/AdvReac Type Severity Reaction Status Date / Time No Known Allergies Allergy Unverified 12/27/17 11:26 Home Medications Medication Instructions Recorded Confirmed Type Fish Oil ([place]-3) 1 cap PO QAM #0 caps 06/12/16 04/12/23 History MULTIPLE VITAMINS W/ MINERALS 1 tab PO QAM ##0 06/12/16 04/12/23 History (CENTRUM SILVER ADULT 50+) aspirin 81 mg tablet,delayed 81 mg PO DAILY 04/12/23 04/12/23 History release carbidopa ER 48.75 mg-levodopa 195 1 cap PO DAILY@08,1400,2000 04/12/23 04/12/23 History mg capsule,extended release (Rytary) cholecalciferol (vitamin D3) 50 50 mcg PO DAILY 04/12/23 04/12/23 History mcg (2,000 unit) tablet (Vitamin D3) fluoxetine 20 mg capsule 20 mg PO DAILY 04/12/23 04/12/23 History lisinopril 2.5 mg tablet 2.5 mg PO DAILY 04/12/23 04/12/23 History omeprazole 20 mg capsule,delayed 20 mg PO DAILY 04/12/23 04/12/23 History release simvastatin 10 mg tablet 10 mg PO PM 04/12/23 04/12/23 History verapamil 240 mg tablet,extended 240 mg PO DAILY 04/12/23 04/12/23 History release Past Med/Surg History Medical History (Updated 04/12/23 @ 10:58 by NICOLETTE Mayes) GERD (gastroesophageal reflux disease) HLD (hyperlipidemia) HTN (hypertension) Parkinson disease Surgical History History of arthroplasty of left shoulder Family History (Updated 04/12/23 @ 10:03 by Jesi Guerrero PA-C) Other Hypertension Social History Smoking Status: Never smoker Hx Alcohol Use: No Hx Substance Use: No Preferred Language: Congolese Communication Ability: Effective Chrome Cleaner Required: No Beliefs That Will Affect Care: None Current Living Situation: Spouse Other Information That Helps Us Care for You: No Feels Safe at Home: Yes Safety Concerns: Feels Safe At This Time Assistive Devices: Glasses Review of Systems Review of Systems: At least ten systems reviewed and negative except as noted in the HPI. Physical Exam Physical Exam: General Appearance: WD/WN, vitals as above, NAD, sitting up in bed, pleasant, conversing easily, parkinsonian tremor Head: normocephalic, atraumatic Eyes: normal inspection, PERRL, conjunctivae normal, anicteric sclerae ENT: external ear and nose normal, oropharynx normal Neck: normal visual inspection, trachea midline, no thyromegaly Respiratory: normal respiratory effort, lungs clear to auscultation, no wheeze, rales, rhonchi. No accessory muscle use Cardiovascular: regular rate, rhythm, no murmur, normal peripheral pulses, no BLE edema. Vessels: no JVD Chest: normal inspection of chest Abdomen/GI: normal bowel sounds, soft, nontender, no hepatosplenomegaly : R flank TTP with radiation to Extremities/Musculoskeletal: no cyanosis or clubbing, extremities motor strength 5/5 Neurologic: PERRL, EOMI, accommodation nl, no face palsy, no dysarthria, CN's II-XI intact bilaterally and moves all extremities Psychiatric: A+Ox3, euthymic affect Skin: no rashes, normal color, warm/dry Results & Data Results & Data Vital Signs (Past 12 Hours) Vital Signs Temp Pulse Pulse Resp BP BP Pulse Ox 04/12/23 07:30 80 16 93 04/12/23 07:30 164/104 H 04/12/23 07:02 154/105 H 04/12/23 07:02 78 22 95 04/12/23 07:00 71 25 H 93 04/12/23 06:32 74 24 142/80 H 96 04/12/23 06:17 74 17 95 04/12/23 06:18 71 04/12/23 06:15 69 18 165/118 H 95 04/12/23 06:13 73 26 H 94 04/12/23 05:37 36.9 C 66 18 154/90 H 98 O2 Del Method 04/12/23 07:30 04/12/23 07:30 04/12/23 07:02 04/12/23 07:02 04/12/23 07:00 04/12/23 06:32 04/12/23 06:17 04/12/23 06:18 04/12/23 06:15 Room Air 04/12/23 06:13 Room Air 04/12/23 05:37 Room Air Laboratory Results Short CBC 04/12/23 Range/Units 06:06 WBC 10.50 (4.8-10.8) K/ul Hgb 15.0 (14.0-18.0) g/dl Hct 42.2 (42.0-52.0) % Plt Count 162 (130-400) K/uL BMP 04/12/23 06:06 Sodium 137 Potassium 4.1 Chloride 105 Carbon Dioxide 24 BUN 17 Creatinine 1.30 Glucose 222 H Calcium 10.1 Liver Function 04/12/23 Range/Units 06:06 Total Bilirubin 0.6 (0.2-1.0) mg/dl AST 25 (13-39) U/L ALT 33 (7-52) U/L Alkaline Phosphatase 88 (34-104) U/L Albumin 4.4 (3.4-5.0) gm/dl Urine 04/12/23 Range/Units 05:55 Urine Color Yellow Urine Appearance Cloudy A (Clear) Urine pH 5.0 (4.5-7.5) Ur Specific [place] 1.026 (1.000-1.030) Urine Protein Trace H (Negative) Urine Glucose (UA) Negative (Negative) Diagnostic Findings Abdomen/Pelvis CT 04/12/23 05:46 CT OF THE ABDOMEN AND PELVIS WITH CONTRAST CLINICAL HISTORY: Right-sided abdominal pain. Nausea COMPARISON STUDY: None. TECHNIQUE: Following IV administration of 95 mL of Optiray, axial images of the abdomen and pelvis were obtained from the lung bases to the proximal femurs. Images were reviewed in the axial, sagittal, and coronal planes. IV contrast was administered without complication. Automated exposure control was utilized for the study. A dose lowering technique was utilized adhering to the principles of ALARA. CT DOSE: 1071.90 mGy.cm FINDINGS: A 6 mm proximal right ureteral calculus results in moderate right hydronephrosis with slightly delayed right nephrogram. There is right perinephri c stranding. A few right renal calculi measure up to 6 mm. There are no left- sided urinary calculi. There are small gallstones within the gallbladder. No evidence for acute cholecystitis. Liver, spleen, adrenal glands and pancreas are unremarkable. There is no evidence for a bowel obstruction. Colonic diverticulosis. No evidence for acute diverticulitis. The appendix is normal. There is no lymphadenopathy. No fluid collections are present. Calcifications within the space of [place] are noted. These are of doubtful significance. IMPRESSION: 1. 6 mm proximal right ureteral calculus which results in moderate right hydronephrosis. 2. Right nephrolithiasis. 3. Cholelithiasis. No evidence for acute cholecystitis. 4. Colonic diverticulosis. No evidence for acute diverticulitis. ACT 112: Negative or not required by law. Electronically signed by: Sacha Deluna M.D. 04/12/2023 7:26 AM Chest X-Ray 04/12/23 06:56 XR chest 1V portable CLINICAL HISTORY: Cough. COMPARISON STUDY: Chest radiograph December 02, 2017. FINDINGS: Right shoulder arthroplasty is partially imaged. Lung volumes are normal. Lungs are clear. There is no pneumothorax or pleural effusion. Cardiac size is normal. Mediastinal contours are normal. There is no evidence for pulmonary edema. IMPRESSION: No acute cardiopulmonary findings. ACT 112: Negative or not required by law. Electronically signed by: Sacha Deluna M.D. 04/12/2023 7:11 AM Code Status & VTE Plan VTE Prophylaxis Plan VTE Prophylaxis will be ordered: Yes Supervising Physician Co-Signing Physician Notes I have seen and examined the patient and have discussed the case with the provider above. I agree with the assessment and plan as stated with the following exceptions. 78 yo M presents with acute right flank pain 2/2 renal colic from a ureteral stone. CT imaging reveals this is 6mm with associated hydronephrosis. The patient otherwise denies symptoms and has underlying parkinsons disease with a c hronic generalized tremor. He does report a few minutes of chest discomfort in the upper central chest area which went away spontaneously. This occurred during CT scanning just after receiving IV contrast, and is suspicious as a non- allergic reaction to the contrast. There is no further chest discomfort present and no associated symptoms of ACS. HS troponin x 2 is negative and ekg is nonischemic. Physical exam reveals hemodynamic stability. He has an all over tremor but is in NAD. Cardiac exam reveals S1/2 heard with no murmurs. Lungs are CTAB. No CVA tenderness and abdomen is soft, NTND. Labwork and imaging reviewed. 1. Ureteral colic 2/2 ureteral stone. 2. HTN Agree with admission for pain control and urology consultation for stone management. Pain is 4/10 after the morphine and he appears comfortable. UA appears contaminated, however, empiric Rocephin was started pending culture results and clinical improvement. Cont with daily Flomax until definitive stone management. Elevated blood pressure appears to be situation with contribution from both missing his am antihypertensive and 2/2 pain. Repeat BP check in the room upstairs shows BP is improving to 156/84 from 170/96 downstairs. I suspect that the chest pain episode in the CT scanner had to do with the contrast and elevated blood pressure with missing morning antihypertensives. There is no historic issue with ACS symptoms in the past 6 months, and no evidence that the chest pain is indicative of a larger more concerning issue at this point. Continuing to monitor on telemetry for now. DO Molina (1) Hydronephrosis Hydronephrosis type: with ureteral calculous obstruction Qualified Code(s): N13.2 - Hydronephrosis with renal and ureteral calculous obstruction
[2023-04-12] MEDS ORDERED: KETOROLAC TROMETHAMINE 15 MG/ML VIAL IV PRN (10:29)
[2023-04-12] MEDS ORDERED: SODIUM CHLORIDE 0.9% 1000ML 1,000 ML IV SCH (10:30)
[2023-04-12] MEDS ORDERED: ACETAMINOPHEN 500 MG TAB PO PRN (10:30)
--- NOTE | 2023-04-12 11:00 | Urology Consultation ---
Date of Consultation April 12, 2023 Assessment & Plan (1) Right ureteral stone: (2) Hydronephrosis: (3) Renal colic on right side: (4) UTI (urinary tract infection): Plan 78yo/M admitted with chest pain, severe right flank pain, and concern for UTI in the setting of an obstructing 6mm proximal right ureteral stone found on CT imaging. Pt developed CP in ED that has since resolved with a repeat normal EKG and normal trop x 2. Afebrile, hypertensive. Labs show no leukocytosis and normal renal function. Urinalysis with 3+ blood, negative nitrite, 1+ LE, negative bacteria, calcium oxalate crystals present. We discussed acute stone management with cystoscopy and stent placement. Ureteral stents were discussed as well as postoperative issues and pain management. He is aware that a second procedure will be needed for stone treatment. Risks and benefits were discussed. All questions were answered. Will plan to proceed to OR today for cystoscopy, right retrograde pyelogram, right ureteral stent placement with Dr. Lopes. Risks and benefits discussed as per consent. IV Rocephin given in the ED. Keep NPO. Continue supportive care and pain management. Urology will follow. ATTENDING NOTE: Independently evaluated, examined, and assessed. Agree with above. Obstructing right stone with significant hydro. Approx 6 mm in Prox/Mid ureter. No major fevers. No significant chills. Pain and discomfort. Risks and benefits discussed at length for procedure. These include bleeding, infection, injury to surrounding tissues or organs, and risks associated with anesthesia. Patient states understanding and agrees to proceed. Will sign consent and schedule. All imaging reviewed. All labs reviewed. See full note for pertinent values. Plan for cystoscopy with right stent placement. History of Present Illness Attending Physician: Jennifer Auguste DO History of Present Illness 78-year-old male with past medical history of Parkinson's disease, hypertension, mood disorder, hyperlipidemia, GERD, history of kidney stones who presented with severe right flank pain. On arrival he was afebrile and hemodynamically stable. Labs show no leukocytosis and normal renal function. Urinalysis with 3+ blood, negative nitrite, 1+ LE, negative bacteria, calcium oxalate crystals. CT abdomen pelvis obtained and notable for a 6 mm proximal right ureteral calculus which results in moderate right hydronephrosis. He did develop some chest tightness after CT scan and noted to have elevated blood pressure of 164/118. Patient was given aspirin and rested in bed with resolution of pain within 10 minutes. EKG showed possible ST changes high-sensitivity troponin at that time was negative and repeat EKG 15 minutes later was normal. Repeat troponin 2 hours later also negative and patient has remained chest pain free. Pt admitted to medicine for further management and care. CT abdomen pelvis- 1. 6 mm proximal right ureteral calculus which results in moderate right hydronephrosis. 2. Right nephrolithiasis. 3. Cholelithiasis. No evidence for acute cholecystitis. 4. Colonic diverticulosis. No evidence for acute diverticulitis. Patient examined at bedside this AM. Awake, resting in bed on arrival. No acute distress. Still with right flank pain, manageable with pain medication. Denies fevers, chills, nausea, vomiting. Voiding without issue. Denies hematuria or dysuria. Denies chest pain or shortness of breath. Has been NPO. Allergies Allergy/AdvReac Type Severity Reaction Status Date / Time No Known Allergies Allergy Unverified 12/27/17 11:26 Home Medications Medication Instructions Recorded Confirmed Type Fish Oil ([place]-3) 1 cap PO QAM #0 caps 06/12/16 04/12/23 History MULTIPLE VITAMINS W/ MINERALS 1 tab PO QAM ##0 06/12/16 04/12/23 History (CENTRUM SILVER ADULT 50+) aspirin 81 mg tablet,delayed 81 mg PO DAILY 04/12/23 04/12/23 History release carbidopa ER 48.75 mg-levodopa 195 1 cap PO DAILY@08,1400,2000 04/12/23 04/12/23 History mg capsule,extended release (Rytary) cholecalciferol (vitamin D3) 50 50 mcg PO DAILY 04/12/23 04/12/23 History mcg (2,000 unit) tablet (Vitamin D3) fluoxetine 20 mg capsule 20 mg PO DAILY 04/12/23 04/12/23 History lisinopril 2.5 mg tablet 2.5 mg PO DAILY 04/12/23 04/12/23 History omeprazole 20 mg capsule,delayed 20 mg PO DAILY 04/12/23 04/12/23 History release simvastatin 10 mg tablet 10 mg PO PM 04/12/23 04/12/23 History verapamil 240 mg tablet,extended 240 mg PO DAILY 04/12/23 04/12/23 History release Patient History Medical History (Updated 04/12/23 @ 10:58 by NICOLETTE Mayes) GERD (gastroesophageal reflux disease) HLD (hyperlipidemia) HTN (hypertension) Parkinson disease Surgical History History of arthroplasty of left shoulder Family History (Updated 04/12/23 @ 10:03 by Jesi Guerrero PA-C) Other Hypertension Social History Smoking Status: Never smoker Hx Alcohol Use: No Hx Substance Use: No Preferred Language: Moldovan Communication Ability: Effective Flight Paramedic Required: No Beliefs That Will Affect Care: None Current Living Situation: Spouse Other Information That Helps Us Care for You: No Feels Safe at Home: Yes Safety Concerns: Feels Safe At This Time Assistive Devices: Glasses Review of Systems Review of Systems: All systems reviewed & are unremarkable except as noted in HPI & below Physical Exam Constitutional: well developed and well nourished; no acute distress Parkinsonian tremor Eyes: PERRL, conjunctivae normal, anicteric sclerae ENMT: external ear and nose normal, oropharynx normal Neck: normal visual inspection Respiratory: normal respiratory effort; no respiratory distress and no labored breathing Musculoskeletal: Head/Neck/Chest: normocephalic Skin: No visible rashes or lesions to exposed skin areas Neurologic: moves all extremities and awake Psychiatric: A+Ox3, euthymic affect Results & Data Vital Signs (Past 12 Hours) Vital Signs Temp Pulse Pulse Pulse Resp BP BP 04/12/23 09:33 36.6 C 72 18 170/96 H 04/12/23 07:30 80 16 04/12/23 07:30 164/104 H 04/12/23 07:02 154/105 H 04/12/23 07:02 78 22 04/12/23 07:00 71 25 H 04/12/23 06:32 74 24 142/80 H 04/12/23 06:17 74 17 04/12/23 06:18 71 04/12/23 06:15 69 18 165/118 H 04/12/23 06:13 73 26 H 04/12/23 05:37 36.9 C 66 18 154/90 H Pulse Ox O2 Del Method 04/12/23 09:33 95 Room Air 04/12/23 07:30 93 04/12/23 07:30 04/12/23 07:02 04/12/23 07:02 95 04/12/23 07:00 93 04/12/23 06:32 96 04/12/23 06:17 95 04/12/23 06:18 04/12/23 06:15 95 Room Air 04/12/23 06:13 94 Room Air 04/12/23 05:37 98 Room Air PG Care Time/CCT Total # of Minutes Spent Total Time Spent with Patient: Total time spent is greater than 50% in coordination of care (as documented) at patient's floor/unit and/or counseling patient: Coding Level of Care Code 87184 INT INP/OBS CARE 255MIN Diagnoses Right ureteral stone N20.1 Hydronephrosis N13.2 Hydronephrosis type: with ureteral calculous obstruction Renal colic on right side N23 UTI (urinary tract infection) N39.0 (2) Hydronephrosis Hydronephrosis type: with ureteral calculous obstruction Qualified Code(s): N13.2 - Hydronephrosis with renal and ureteral calculous obstruction
[2023-04-12 11:05] LABS: Estimated Average Glucose 171 mg/dl; Hemoglobin A1C 7.6 % (4.5-5.6)
--- NOTE | 2023-04-12 11:20 | Anesthesiology Consultation ---
Date of Service April 12, 2023 Assessment & Plan Chart Review Chart Review: Acceptable Risk for Surgery Consults Requested none History Surgery Operation Date: 04/12/23 13:55 Proposed Procedures p Cystoscopy, Right Retrograde Pyelogram, Right Stent Placement - Herman Lopes, Height/Weight Height: 5 ft 7 in Weight: 81.4 kg Allergies Allergy/AdvReac Type Severity Reaction Status Date / Time No Known Allergies Allergy Unverified 12/27/17 11:26 Medications Home Medications Medication Instructions Recorded Confirmed Last Taken Fish Oil ([place]-3) 1 cap PO QAM #0 caps 06/12/16 04/12/23 Unknown MULTIPLE VITAMINS W/ MINERALS 1 tab PO QAM ##0 06/12/16 04/12/23 Unknown (CENTRUM SILVER ADULT 50+) aspirin 81 mg tablet,delayed 81 mg PO DAILY 04/12/23 04/12/23 Unknown release carbidopa ER 48.75 mg-levodopa 195 1 cap PO DAILY@08,1400,199904/12/23 04/12/23 Unknown mg capsule,extended release (Rytary) cholecalciferol (vitamin D3) 50 50 mcg PO DAILY 04/12/23 04/12/23 Unknown mcg (2,000 unit) tablet (Vitamin D3) fluoxetine 20 mg capsule 20 mg PO DAILY 04/12/23 04/12/23 Unknown lisinopril 2.5 mg tablet 2.5 mg PO DAILY 04/12/23 04/12/23 Unknown omeprazole 20 mg capsule,delayed 20 mg PO DAILY 04/12/23 04/12/23 Unknown release simvastatin 10 mg tablet 10 mg PO PM 04/12/23 04/12/23 Unknown verapamil 240 mg tablet,extended 240 mg PO DAILY 04/12/23 04/12/23 Unknown release NPO Date Last Intake of Fluids: 04/12/23 Time Last Intake of Fluids: 09:50 Date Last Intake of Solids: 04/11/23 Time Last Intake of Solids: 18:00 Past Medical History Medical History (Updated 04/12/23 @ 10:58 by NICOLETTE Mayes) GERD (gastroesophageal reflux disease) HLD (hyperlipidemia) HTN (hypertension) Parkinson disease Past Family History Family History (Updated 04/12/23 @ 10:03 by Jesi Guerrero PA-C) Other Hypertension Past Surgical History Surgical History History of arthroplasty of left shoulder Social History Smoking Status: Never smoker Hx Alcohol Use: No Hx Substance Use: No Physical Exam Vital Signs Last Vital Signs Temp 36.7 C 04/12/23 11:01 Pulse 77 04/12/23 11:01 Resp 18 04/12/23 11:01 BP 163/119 H 04/12/23 11:01 Pulse Ox 93 04/12/23 11:01 O2 Del Method Room Air 04/12/23 11:01 Testing Laboratory Results 04/12/23 06:06 04/12/23 06:06 Hemoglobin A1c 7.6 % (4.5-5.6) H 04/12/23 06:06 Urine Color Yellow 04/12/23 05:55 Urine Appearance Cloudy (Clear) A 04/12/23 05:55 Urine pH 5.0 (4.5-7.5) 04/12/23 05:55 Ur Specific [place] 1.026 (1.000-1.030) 04/12/23 05:55 Urine Protein Trace (Negative) H 04/12/23 05:55 Urine Glucose (UA) Negative (Negative) 04/12/23 05:55 Urine Ketones Trace (Negative) H 04/12/23 05:55 Urine Nitrite Negative (Negative) 04/12/23 05:55 Ur Leukocyte Esterase 1+ (Negative) H 04/12/23 05:55 Urine WBC (Auto) 5-10 /hpf (0-5) H 04/12/23 05:55 Urine RBC (Auto) 10-30 /hpf (0-4) H 04/12/23 05:55 U Hyaline Cast (Auto) 1-5 /lpf (0-5) 04/12/23 05:55 U Epithel Cells (Auto) >30 /lpf (0-5) H 04/12/23 05:55 Urine Bacteria (Auto) Negative (Negative) 04/12/23 05:55
[2023-04-12] MEDS ORDERED: PROMETHAZINE HCL 12.5 MG in SODIUM CHLORIDE 0.9% 50 ML IV PRN (11:22)
[2023-04-12] MEDS ORDERED: fentaNYL citrate PF 100 MCG/2 ML VIAL IV PRN (11:22)
[2023-04-12] MEDS ORDERED: HYDROmorphone INJ 2 MG/ML SYR/VIAL IV PRN (11:22)
[2023-04-12] MEDS ORDERED: ATROPINE SULFATE 0.1 MG/ML 10ML SYR IV PRN (11:22)
[2023-04-12] MEDS ORDERED: ePHEDrine sulfate 50 MG/ML AMP IV PRN (11:22)
[2023-04-12] MEDS ORDERED: fentaNYL citrate PF 100 MCG/2 ML VIAL ONE (11:30)
[2023-04-12] MEDS ORDERED: LIDOCAINE 2% 2 ML VIAL/AMP(20MG/ML) INFIL ONE (11:31)
[2023-04-12] MEDS ORDERED: PROPOFOL IV EMULSION 10 MG/ML 20 ML VIAL IV ONE (11:31)
--- NOTE | 2023-04-12 12:13 | Operative Report ---
PG Post Operative Report Pre & Post Diagnosis Operation Date: 04/12/23 13:55 Pre-Op Diagnosis: CP, OBSTRUCTING URETERAL STONE WITH HYDRO Post-Op Diagnosis: CP, OBSTRUCTING URETERAL STONE WITH HYDRO I identified the patient and participated in the time-out.: Yes Procedure Operation Date: 04/12/23 13:55 Actual Procedures p Cystoscopy, urine aspiration, and Right Stent Placement(Right) - Herman Lopes DO Surgeon Herman Lopes, II, DO Film Maker None Estimated Blood Loss 1 Findings Consistent with Post-Op Diagnosis Stent placed in good position. Contrast still present in collecting system on right from imaging earlier today. Significant hydronephrosis and obstruction. Specimens Urine Right Kidney Drains 6 Fr Multilength Anesthesia Type MAC Complications none Disposition Disposition: Recovery Room Indications Patient with obstruction. Risks and benefits discussed at length. Description of Procedure Patient was consented and brought back to the operating room. Patient was placed under anesthesia in the supine position and moved to the dorsal lithotomy position. Patient was prepped and draped in the regular sterile fashion. A time out was completed. A 30degree Cystoscope was placed into the bladder and the entire bladder was examined. The UO's were identified. On correctional lieutenant imaging for fluoroscopy contrast was noted to still be located within the collecting system on the right. Patient had a contrasted image earlier in the day and due to the obstruction had a pyelogram with hydronephrosis a dilated system and contrast retained down to the region of the mid ureter where the stone was approximately located. The UO was cannulized with a catheter, urine was aspirated, and a wire was then placed. Urine from the kidney was sent for microanalysis. With the wire in place, a 6 Fr Double J stent was placed. It was confirmed with fluoroscopy. With the stent in place, the bladder was emptied. The scope was removed. The patient was cleaned, aroused from anesthesia, and transferred to the pacu in stable condition having tolerated the procedure well with no complications. I was present and participated in all aspects of the procedure. The patient will be monitored in the PACU until transferred. We will plan to maintain stent. Follow-up in 1 to 2 weeks in order to set up procedure for stone treatment I attest to the content of the Intraoperative Record and any orders documented therein. Any exceptions are noted below.
--- NOTE | 2023-04-12 12:15 | Anesthesiology Progress Note ---
Date of Service April 12, 2023 Anesthesia Post Procedure Vital Signs Vital Signs: Temp Pulse Pulse Pulse Resp BP BP 04/12/23 12:07 36.4 C L 84 18 143/106 H 04/12/23 11:01 36.7 C 77 18 163/119 H 04/12/23 09:33 36.6 C 72 18 170/96 H 04/12/23 07:30 80 16 04/12/23 07:30 164/104 H 04/12/23 07:02 154/105 H 04/12/23 07:02 78 22 04/12/23 07:00 71 25 H 04/12/23 06:32 74 24 142/80 H 04/12/23 06:17 74 17 04/12/23 06:18 71 04/12/23 06:15 69 18 165/118 H 04/12/23 06:13 73 26 H 04/12/23 05:37 36.9 C 66 18 154/90 H Pulse Ox O2 Del Method O2 Flow Rate 04/12/23 12:07 98 Oxymask 6 04/12/23 11:01 93 Room Air 04/12/23 09:33 95 Room Air 04/12/23 07:30 93 04/12/23 07:30 04/12/23 07:02 04/12/23 07:02 95 04/12/23 07:00 93 04/12/23 06:32 96 04/12/23 06:17 95 04/12/23 06:18 04/12/23 06:15 95 Room Air 04/12/23 06:13 94 Room Air 04/12/23 05:37 98 Room Air Pain Intensity Abdomen: Pain Intensity: 0 Transfer of Care Handoff Completed per policy Notes Mental Status: alert / awake / arousable and participated in evaluation Patient Amnestic to Procedure: Yes Nausea / Vomiting: adequately controlled Pain: adequately controlled Airway Patency, RR, SpO2: stable & adequate BP & HR: stable & adequate Hydration State: stable & adequate Anesthetic Complications: no major complications apparent
[2023-04-12] MEDS: CARBIDOPA/LEVODOPA 1 EACH CAPSULE.ER PO SCH ×2 (14:20→20:24)
[2023-04-12] MEDS: FLUoxetine HCL 20 MG CAP PO SCH (14:20)
[2023-04-12] MEDS ORDERED: CARBOHYDRATES FOR HYPOGLYCEMIA PO PRN (15:40)
[2023-04-12] MEDS ORDERED: GLUCOSE 10 TAB/TUBE PO PRN (15:40)
[2023-04-12] MEDS ORDERED: GLUCAGON FOR INJ 1 MG VIAL SQ PRN (15:40)
[2023-04-12] MEDS ORDERED: DEXTROSE 50% 50 ML SYRINGE IV PRN (15:40)
[2023-04-12] MEDS ORDERED: GLUCOSE 40% GEL 15 GM TUBE PO PRN (15:40)
[2023-04-12] MEDS: INSULIN ASPART PER UNIT CHARGE SC SCH ×2 (18:31→20:43)
[2023-04-12] MEDS ORDERED: TAMSULOSIN HCL 0.4 MG CAP PO SCH (21:00)
[2023-04-12] MEDS ORDERED: SIMVASTATIN 10 MG TAB PO SCH (21:00)
[2023-04-13 06:19] LABS: Hematocrit (blood only) 37.8 % (42.0-52.0); Hemoglobin 13.3 g/dl (14.0-18.0); Mean Corpuscular Hemoglobin 30.7 pg (25.0-34.0); Mean Corpuscular Hgb Conc 35.2 g/dL (32.0-36.0); Mean Corpuscular Volume 87.3 fL (80.0-100.0); Mean Platelet Volume 10.6 fL (9.4-12.4); Platelet Count 147 K/uL (130-400); RDW Coefficient of Variation 11.9 % (11.5-14.5); RDW Standard Deviation 38.3 fL (36.4-46.3); Red Blood Count 4.33 M/uL (4.70-6.10); White Blood Count 8.08 K/ul (4.8-10.8)
[2023-04-13 06:39] LABS: BUN Creatinine Ratio 12.7 (10-20); Calcium 9.9 mg/dl (8.6-10.3); Est GFR (African American) 58.4 ml/min; Est GFR (Non-African American) 50.4 ml/min; Potassium 4.1 mmol/L (3.5-5.1)
[2023-04-13] MEDS: CARBIDOPA/LEVODOPA 1 EACH CAPSULE.ER PO SCH ×2 (08:49→13:42)
[2023-04-13] MEDS: INSULIN ASPART PER UNIT CHARGE SC SCH ×2 (08:52→12:44)
[2023-04-13] MEDS: FLUoxetine HCL 20 MG CAP PO SCH (08:56)
[2023-04-13] MEDS ORDERED: ASPIRIN 81 MG ECTAB PO SCH (09:00)
[2023-04-13] MEDS ORDERED: CHOLECALCIFEROL 1,000 UNITS 25 MCG TAB PO SCH (09:00)
[2023-04-13] MEDS ORDERED: lisinopril 2.5 MG TAB PO SCH (09:00)
[2023-04-13] MEDS ORDERED: VERAPAMIL HCL 240 MG TABCR PO SCH (09:00)
[2023-04-13] MEDS ORDERED: CEROVITE ADV FORMULA TAB PO SCH (09:00)
[2023-04-13] MEDS ORDERED: OMEGA-3 (PURIFIED FISH OIL) 1 GM CAP PO SCH (09:00)
[2023-04-13] MEDS ORDERED: PANTOprazole 40 MG TAB PO SCH (09:00)
[2023-04-13] MEDS ORDERED: cefTRIAXone SODIUM 2,000 MG in DEXTROSE 5% 50 ML IV SCH (10:00)
--- NOTE | 2023-04-13 12:32 | Electrocardiogram Report ---
Test Reason : Blood Pressure : / mmHG Vent. Rate : 072 BPM Atrial Rate : 072 BPM P-R Int : 154 ms QRS Dur : 088 ms QT Int : 382 ms P-R-T Axes : 047 015 052 degrees QTc Int : 418 ms Normal sinus rhythm Normal ECG When compared with ECG of 02-DEC-2017 11:58, No significant change was found Confirmed by Mikie Gore ([id number]) on 04/13/2023 12:32:00 PM Referred By: REFERRED SELF Confirmed By:Mikie Gore
--- NOTE | 2023-04-13 12:33 | Electrocardiogram Report ---
Test Reason : Blood Pressure : / mmHG Vent. Rate : 082 BPM Atrial Rate : 082 BPM P-R Int : 162 ms QRS Dur : 094 ms QT Int : 374 ms P-R-T Axes : 058 009 059 degrees QTc Int : 436 ms Normal sinus rhythm Normal ECG When compared with ECG of 12-APR-2023 05:55, No significant change was found Confirmed by Mikie Gore ([id number]) on 04/13/2023 12:32:47 PM Referred By: REFERRED SELF Confirmed By:Mikie Gore
--- NOTE | 2023-04-13 13:29 | Discharge Summary ---
Date of Service April 13, 2023 Admission HPI Per Admitting Provider This is a 78-year-old male with past medical history of Parkinson's disease, hypertension, mood disorder, hyperlipidemia, GERD, history of kidney stones and other medical problems listed below who presents with flank pain that woke him up around 0100 this morning. States he felt fatigued and achy yesterday but did not have any pain until it woke him up around 1 this morning. States he developed right-sided sharp flank pain that radiated towards his back and also towards his bladder. Denies any dysuria, hematuria or increased frequency or urgency. Does have history of kidney stones in the past but they have been less painful than this and passed on their own. Endorses some associated nausea but no vomiting. Denies any fever, chills, lightheadedness, shortness of breath, abdominal pain, diarrhea or constipation. Did develop some chest tightness after CAT scan and noted to have elevated blood pressure of 164/118. Did not yet take his morning medications. Patient was given aspirin and rested in bed with resolution of pain within 10 minutes. EKG showed possible ST changes in V4 to V6 but high-sensitivity troponin at that time was negative and repeat EKG 15 minutes later was normal. Repeat troponin 2 hours later also negative and patient has remained chest pain free. Still experiencing 4/10 R flank discomfort. Admission Exam Per Admitting Provider General Appearance:WD/WN, vitals as above, NAD, sitting up in bed, pleasant, conversing easily, parkinsonian tremor Head: normocephalic, atraumatic Eyes:normal inspection, PERRL, conjunctivae normal, anicteric sclerae ENT: external ear and nose normal, oropharynx normal Neck: normal visual inspection, trachea midline, no thyromegaly Respiratory:normal respiratory effort, lungs clear to auscultation, no wheeze, rales, rhonchi. No accessory muscle use Cardiovascular: regular rate, rhythm, no murmur, normal peripheral pulses, no BLE edema. Vessels: no JVD Chest: normal inspection of chest Abdomen/GI: normal bowel sounds, soft, nontender, no hepatosplenomegaly :R flank TTP with radiation to Extremities/Musculoskeletal: no cyanosis or clubbing, extremities motor strength 5/5 Neurologic: PERRL, EOMI, accommodation nl, no face palsy, no dysarthria, CN's II-XI intact bilaterally and moves all extremities Psychiatric:A+Ox3, euthymic affect Skin: no rashes, normal color, warm/dry Principal Diagnosis Right ureteral stone Hydronephrosis Renal colic on right side UTI Discharge Exam GENERAL: Alert and oriented x3. NAD, on RA. HEENT: No pallor, no icterus. Pupils equal, round and reactive to light. Oral mucosa moist. NECK: No JVD, no neck masses. HEART: S1 and S2 heard. Regular rate and rhythm. No murmur, no gallop. RESPIRATORY SYSTEM: Normal AP diameter. No accessory muscle use. No wheezing, no crackles. ABDOMEN: Soft, bowel sounds present, nontender, no distention. CENTRAL NERVOUS SYSTEM: No facial droop. Speech is clear. Obeys simple commands. Moves extremities. EXTREMITIES: No edema, no erythema seen. Discharge Data Allergies Allergy/AdvReac Type Severity Reaction Status Date / Time No Known Allergies Allergy Unverified 12/27/17 11:26 Consultations 04/12/23 08:00 ED Decision to Admit Stat 04/12/23 09:22 Consult Urology Routine Procedures Performed Operation Date: 04/12/23 13:55 Actual Procedures p Cystoscopy, Right Retrograde Pyelogram, Right Stent Placement(Right) - Herman Lopes, Ordered Studies 04/12/23 05:46 CT abd pelvis IV con only Stat Diabetes Follow up Diabetes Follow-up Needed for Newly Diagnosed Diabetes Hospital Course (1) Hydronephrosis: (2) Right ureteral stone: (3) Atypical chest pain: (4) HTN (hypertension): (5) HLD (hyperlipidemia): (6) Parkinson disease: Plan 78-year-old male with past medical history of Parkinson's disease, hypertension, mood disorder, hyperlipidemia, GERD, history of kidney stones and other medical problems listed below who presents with flank pain that woke him up around 0100 on the morning of arrival and was found R ureteral stone with hydronephrosis. 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 Transient chest pain Developed chest pain following CT scan that has since resolved Multifactorial with anxiety, elevated BP and contrast dye likely contributing Pain resolved after 10 minutes and has not recurred. Repeat EKG and HS trop negative x 3 Patient hemodynamically stable, no further chest pain. HTN Continue verapamil, lisinopril Parkinson's disease Given missed AM dose of Rytary (not on formulation here but family brought, will send to pharmacy) Mood disorder Stable, continue fluoxetine Hyperglycemia BSG 222 this AM. No known h/o DM II. Added a1c to AM labs DVT Ppx: SCDs for now in case of intervention Code status: FULL PCP: Bob Dispo: Observation PCU Patient being discharged home with following instruction at the point of discharge: Follow-up with your primary care physician within a week time and likely you will need labs CBC/CMP/magnesium/phosphorus. Follow-up with urology in 1 to 2 weeks time upon discharge. You will be discharged on few days worth of antibiotic to complete the course for UTI. For your mild pain, you can use [id number] Tylenol. For your severe pain you can use Percocet as prescribed. If your pain is ongoing, you will need further evaluation by either your PCP or your urology for further pain management prescription. Take your medications as prescribed. Please make sure that you are able to get your medications today by calling your pharmacy before you leave the hospital so that your treatment continuity is not broken. Home Health Attestation I certify that this patient is under my care and that I, or a physicians assistant elementary teacher working with me, had a face to-face encounter that meets the home health [id number] encounter requirements with this patient. The encounter with the patient was in whole, or in part, for the following medical condition, which is the primary reason for home health care (list medical condition): I certify that, based on my findings, the following services are medically necessary home health services: My clinical findings support the need for the above services because: Further, I certify that my clinical findings support that this patient is homebound (i.e. absences from home require considerable and taxing effort and are for medical reasons or judaism services or infrequently or of short duration when for other reasons) because: Certification for Home Health Services: Based on the above findings, I certify that this patient is confined to the home and needs intermittent fdc care, physical therapy and/or speech therapy or continues to need occupational therapy. The patient is under my care, and I have initiated the establishment of the plan of care. This patient will be followed by a physician who will periodically review the plan of care. Total Time Total Time Spent Total Time Spent (In Minutes): 45 Discharge Plan Discharge Items Patient Disposition: Home - Self-Care Reason For Visit: CP, OBSTRUCTING URETERAL STONE WITH HYDRO Discharge Diagnosis: Right ureteral stone Hydronephrosis Renal colic on right side UTI Activity: Resume your previous activity Non-emergency contact: Primary Care Provider Call non-emergency contact if: you have any medication questions, your symptoms worsen, your pain is not controlled and your temperature is above 101 Follow-up/Referrals: Santosh Rojas [Primary Care Provider] - Diet: Carb Consistent or DM2 and Heart Healthy Addtl Attending Provider Instructions: Follow-up with your primary care physician within a week time and likely you will need labs CBC/CMP/magnesium/phosphorus. Follow-up with urology in 1 to 2 weeks time upon discharge. You will be discharged on few days worth of antibiotic to complete the course for UTI. For your mild pain, you can use [id number] Tylenol. For your severe pain you can use Percocet as prescribed. If your pain is ongoing, you will need further evaluation by either your PCP or your urology for further pain management prescription. Take your medications as prescribed. Please make sure that you are able to get your medications today by calling your pharmacy before you leave the hospital so that your treatment continuity is not broken. Pending Studies at Discharge: Yes Stand-Alone Forms: My Tyrogenex, Smoking Cessation Medications and DC Order Prescriptions: New tamsulosin 0.4 mg Capsule 0.4 mg PO HS Qty: 30 0RF oxycodone-acetaminophen [Percocet] 5-325 mg tablet 1 tab PO TID PRN (Reason: pain (scale score 7-10)) 3 Days Qty: 9 0RF phenazopyridine [Pyridium] 100 mg tablet 100 mg PO Q8H PRN (Reason: pain) Qty: 6 0RF cephalexin 500 mg capsule 500 mg PO Q8H 5 Days Qty: 15 0RF Continued Fish Oil ([place]-3) 1 EA capsule 1 cap PO QAM Qty: 0 Patient Comments: PT REPORTS OMEGA 3 AND FISH OIL IS TOGETHER IN ONE BIG HORSE PILL MULTIPLE VITAMINS W/ MINERALS (CENTRUM SILVER ADULT 50+) 1 TAB tablet 1 tab PO QAM Qty: 0 omeprazole 20 mg capsule,delayed release(DR/EC) 20 mg PO DAILY simvastatin 10 mg tablet 10 mg PO PM aspirin 81 mg Tablet,Delayed Release (Dr/Ec) 81 mg PO DAILY verapamil 240 mg tablet extended release 240 mg PO DAILY fluoxetine 20 mg capsule 20 mg PO DAILY lisinopril 2.5 mg tablet 2.5 mg PO DAILY cholecalciferol (vitamin D3) [Vitamin D3] 50 mcg (2,000 unit) Tablet 50 mcg PO DAILY Rytary 48.75-195 mg capsule, extended release 1 cap PO DAILY@08,1400,2000 Rx Instructions: 8am, 2pm and 8pm Discharge Orders: Discharge Order (Routine); Ordered 04/13/23 Ordered By: Mahesh Wyatt Admission Data Admit Date/Time: 04/12/23 09:33 Attending Provider: Jennifer Auguste Admit Provider: Jennifer Auguste Primary Care Provider: Santosh Rojas Other Providers: Jose D Salguero ; Herman Lopes ; Mahesh Wyatt
[2023-04-13] MEDS ORDERED: oxyCODONE/ACETAMINOPHEN 5mg/325mg TAB PO STA (13:33)
--- NOTE | 2023-04-13 20:30 | Electrocardiogram Report ---
Test Reason : Blood Pressure : / mmHG Vent. Rate : 079 BPM Atrial Rate : 079 BPM P-R Int : 150 ms QRS Dur : 084 ms QT Int : 374 ms P-R-T Axes : 046 -07 023 degrees QTc Int : 428 ms Normal sinus rhythm Nonspecific ST abnormality When compared with ECG of 12-APR-2023 07:21, No significant change was found Confirmed by Mikie Gore ([id number]) on 04/13/2023 8:30:16 PM Referred By: REFERRED SELF Confirmed By:Mikie Gore
== END 2023-04-13 16:45 | disposition home or self-care (01) ==
LOC: 4W 05:35 → ED 05:35 → 4W 09:19